=== PATIENT | female | born 1985 | race Asian ===

== ENCOUNTER 2020-03-04 20:23 | Emergency (ER) | payer OTHER ==
[~2020-03-04] VITALS: Ht 162.6 cm; Wt 61.2 kg
[2020-03-04 20:30] VITALS: Ht 162.6 cm; Wt 61.2 kg
[2020-03-04 23:23] VITALS: BP 108/65
== END 2020-03-04 23:23 | disposition home or self-care (01) ==
LOC: ED 20:23
DX: S06.0X1A Concussion with loss of consciousness of 30 minutes or less, initial encounter (principal); W21.04XA Struck by golf ball, initial encounter; Y93.89 Activity, other specified; Y92.89 Other specified places as the place of occurrence of the external cause; Y99.8 Other external cause status
CPT/HCPCS: Q0162